=== PATIENT | male | born 1990 ===

== ENCOUNTER 2021-10-22 18:11 | Emergency (ER) | payer SELFPAY ==
[~2021-10-22] VITALS: Ht 167.6 cm; Wt 89.8 kg
== END 2021-10-22 21:21 | disposition home or self-care (01) ==
LOC: ER 18:11
DX: S01.01XA Laceration without foreign body of scalp, initial encounter (principal); X58.XXXA Exposure to other specified factors, initial encounter
CPT/HCPCS: 12002; 90714; 99282-25